=== PATIENT | female | born 1950 | race Caucasian/White ===

== ENCOUNTER → 2020-06-27 | Outpatient (CLI) | payer OTHER ==
[~2020-06-27] MED LIST: ALEVE220 M1 PO; ESTRACE1 MG PO; MEPERIDINE PO; MOM PO; NORCO 5-325 TA1 EAC1 PO; NORCO 5-325 TA1 EACH PO; OMEPRAZOLE 20 M20 M1 PO; PROBIOTIC1 EAC7 PO; SIMVASTATIN40 MG PO; ZOFRAN4 MG PO
--- NOTE | 2020-06-27 17:17 | CARDNUC ---
[place] [address] CARDIAC NUCLEAR IMAGING REPORT Name: RODASCARLOS Lynette Room: [facility]#: [id number] Admission: 06/27/20 Attend Phys: Radha Guo Discharge: Date of : 52 Date of Service: 06/27/20 1717 Report #: [id number] THIS REPORT FOR: cc: Jamilah Mancera Maggie M. DO Liston, Michael J. MD [facility] ~ APPROVED REPORT Study performed: 06/27/2020 09:36:01 Exam: Nuclear Stress Test Indication: Dyspnea Patient Location: Out-Patient Stress Tech: Rosa Elena Castellanos Stress Nurse: Beth Thakkar RN Ht: 5 ft 7 in Wt: 161 lbs BSA: 1.84 m2 BMI: 25.21 Medical History Medical History: Hyperlipidemia Medications: simvastatin Allergies: No known drug allergies Cardiac Risk Factors: Age, Hyperlipidemia Exercise History: Physically active Stress Test Details Stress Test: Pharmacologic stress testing performed using 0.4 mg of regadenoson per 5 mL given IV over 10 seconds. Reason for pharmacologic stress test: physical limitation. HR Resting HR: 85 bpm Max Heart Rate (APMHR): 152 bpm Max HR Achieved: 111 bpm Target HR (85% APMHR): 129 bpm % of APMHR: 73 Recovery HR: 96 bpm BP Resting BP: 140/73 mmHg Max BP: 150/76 mmHg ECG Resting ECG: Sinus Rhythm Stress ECG: [place] [address] CARDIAC NUCLEAR IMAGING REPORT Name: CARLOS ROADS Room: [facility]#: [id number] Admission: 06/27/20 Attend Phys: Radha Guo Discharge: Date of : 52 Date of Service: 06/27/20 1717 Report #: [id number] Change: None Arrhythmia: None Recovery ECG: Sinus Rhythm Recovery ST Change: None Recovery Arrhythmia: None Clinical Reason for Termination: Completed protocol The patient tolerated Lexiscan infusion without significant cardiac symptoms. Nurse Comments pt has bad ankle and is unable to walk on treadmill Stress ECG Conclusion Baseline twelve-lead EKG shows sinus rhythm without significant ST segment or T wave abnormality. EKGs obtained during and post Lexiscan infusion show sinus rhythm and sinus tachycardia with no significant ST segment changes when compared to baseline. There were no significant stress-induced arrhythmias. NM EXAM: Myocardial Perfusion REST/STRESS Resting Data Rest SPECT myocardial perfusion imaging was performed in supine position 30 minutes following the intravenous injection of 9.8 mCi of Tc-99m Sestamibi. Time of rest injection: 0800 The images were gated to evaluate regional wall motion and calculate left ventricular ejection fraction. Administration Route: IV Administration Site: Right AC Pharmacologic Stress Pharmacologic stress test was performed by injecting Regadenoson 0.4 mg IV push followed by the intravenous injection of 28.8 mCi of Tc-99m Sestamibi. Time of stress injection: 09:50 Administration Route: IV Administration Site: Right AC Heart Rate at time of stress injection: 111 bpm. Gated Stress SPECT was performed 45 minutes after stress injection. The images were gated to evaluate regional wall motion and calculate left [place] [address] CARDIAC NUCLEAR IMAGING REPORT Name: CARLOS RODAS Room: [facility]#: [id number] Admission: 06/27/20 Attend Phys: Radha Guo Discharge: Date of : 52 Date of Service: 06/27/20 1717 Report #: [id number] Study Quality Study: Good Artifact: No artifact Study Data At rest, the left ventricular ejection fraction was 79%.. Post stress, the left ventricular ejection was 77%.. TID = 0.93. Perfusion Perfusion images obtained at rest and post Lexiscan stress show uniform uptake of the radioisotope throughout the myocardium. Wall Motion Normal left ventricular wall motion. Nuclear Conclusion ECG Findings: negative for ischemia Clinical Findings: negative for ischemia Nuclear Findings: negative for ischemia Exercise Capacity: not assessed Left Ventricular Function: normal Risk Study: low Perfusion images show no defect to suggest infarct or ischemia. Left ventricular systolic function appears normal on gated studies. This is a low risk study. <Conclusion> Baseline twelve-lead EKG shows sinus rhythm without significant ST segment or T wave abnormality. EKGs obtained during and post Lexiscan infusion show sinus rhythm and sinus tachycardia with no significant ST segment changes when compared to baseline. There were no significant stress-induced arrhythmias. <ELECTRONICALLY SIGNED> By: Saeed Bauman MD, FACC 06/27/201716 16 16 Saeed Bauman MD, FACC /INF
== END ==
LOC: M.NUC 06-19 12:00
PROVIDERS: ATTEND Nurse Practitioner Family
DX: R06.02 Shortness of breath (principal)